=== PATIENT | female | born 1985 | race Caucasian/White ===

== ENCOUNTER 2024-11-15 15:10 | Day surgery (SDC) | payer OTHER ==
[2024-11-14 09:06] LABS: BASO % 0.7 % (0.1-1.2); EOS # 0.41 (0.04-0.54); EOS % 4.8 % (0.7-7.0); LYMPH # 1.91 (1.18-3.74); LYMPH % 22.2 % (19.3-53.1); MEAN PLATELET VOLUME 10.20 fl (9.4-12.4); MONO # 0.68 (0.24-0.82); MONO % 7.9 % (4.7-12.5); NEUT # 5.52 (1.56-6.13); NEUT % 64.2 % (34.0-71.1); RED CELL DISTRIBUTION WIDTH 13.9 % (11.6-14.4)
[2024-11-14 09:35] LABS: INR 1.06
[2024-11-15] MEDS ORDERED: POVIDONE-IODINE 118 ML BOTT TOP ONE (17:30)
[2024-11-15] MEDS ORDERED: CEFOXITIN SODIUM 2,000 MG VIAL IV ONE (17:30)
[2024-11-15] MEDS ORDERED: PROMETHAZINE HCL 50 MG/ML AMPUL IM ONE (17:30)
[2024-11-15] MEDS ORDERED: MORPHINE SULFATE 4 MG/ML VIAL IV PRN (17:30)
== END 2024-11-15 22:55 | disposition home or self-care (01) ==
LOC: EDBD → CIR.AMB 15:10
PROVIDERS: ATTEND Obstetrics & Gynecology Maternal & Fetal Medicine
DX: O02.1 Missed abortion (principal); O72.2 Delayed and secondary postpartum hemorrhage